=== PATIENT | female | born 1995 | race Caucasian/White ===

== ENCOUNTER 2021-02-08 22:08 | Emergency (ER) | payer MEDICAID ==
[~2021-02-08] VITALS: Ht 157.5 cm; Wt 70.3 kg
--- NOTE | 2021-02-08 22:25 | NUR ---
Patient to ER bed TENT 1 to gown for evaluation. Side rails up.
[2021-02-08 22:26] VITALS: BP_SYST 125
--- NOTE | 2021-02-08 22:30 | NUR ---
Pt brought by self, ambulatory, A&Ox4, pt presents to ER with sore throat, states food got stock on throat and pain started after, pt afebrile, skin pink and warm, cap refill <3.
--- NOTE | 2021-02-08 23:55 | NUR ---
ER Dr. Quick at bedside examining patient.
[2021-02-09] MEDS ORDERED: PROM473S6 PO (00:47)
[2021-02-09] MEDS ORDERED: PRELO PO (00:47)
[2021-02-09] MEDS ORDERED: AMOX250S64 PO (00:47)
[2021-02-09 01:11] VITALS: BP_SYST 122
--- NOTE | 2021-02-09 01:11 | NUR ---
Patient given written and verbal discharge instructions and verbalizes understanding. ER MD discussed with patient the results and treatment provided. Patient in stable condition. ID arm band removed. Rx of PRELONE, AUGMENTIN, TYLENOL WITH CODEINE given. Patient educated on pain management and to follow up with PMD. Pain Scale 0/10 Opportunity for questions provided and answered.
== END 2021-02-09 01:11 | disposition home or self-care (01) ==
LOC: SED 22:08
DX: J02.8 Acute pharyngitis due to other specified organisms (principal); B97.89 Other viral agents as the cause of diseases classified elsewhere; J45.909 Unspecified asthma, uncomplicated; Z20.822 Contact with and (suspected) exposure to COVID-19
CPT/HCPCS: 36415; 70360-TC; 99284

== ENCOUNTER 2021-03-18 12:25 | Emergency (ER) | payer MEDICAID, SELFPAY ==
[~2021-03-18] VITALS: Ht 160 cm; Wt 69.4 kg
[~2021-03-18 12:25] MED LIST: AMOX250S64 PO; PRELO PO; PROM473S6 PO
[2021-03-18 12:30] VITALS: BP_SYST 109
--- NOTE | 2021-03-18 12:30 | NUR ---
TRIAGED IN OUTSIDE TENT AND AWAITING ER BED.
--- NOTE | 2021-03-18 12:47 | NUR ---
PT STATES THAT SHE WENT TO AN OUTSIDE FESTIVAL, NOW WITH COUGH, RIGHT EAR PAIN, AND SORE THROAT. PT STATES SHE IS UNVACCINATED AND DOES NOT WANT ONE.
--- NOTE | 2021-03-18 13:01 | NUR ---
SING OUT TO TENT TO EVALUATE PT.
[2021-03-18] MEDS ORDERED: ALBU8.5H8 INH (13:12)
[2021-03-18] MEDS ORDERED: IBUP-1969 PO (13:12)
[2021-03-18] MEDS ORDERED: BENZ-16 PO (13:12)
--- NOTE | 2021-03-18 13:23 | NUR ---
Patient given written and verbal discharge instructions and verbalizes understanding. ER MD discussed with patient the results and treatment provided. Patient in stable condition. ID arm band removed. Rx of ALBUTEROL, TESSALON, IBUPROFEN given. Patient educated on pain management and to follow up with PMD. Pain Scale 0/10. Opportunity for questions provided and answered. Medication side effect fact sheet provided.
== END 2021-03-18 13:23 | disposition home or self-care (01) ==
LOC: SED 12:25
DX: B34.9 Viral infection, unspecified (principal); J45.909 Unspecified asthma, uncomplicated; Z79.899 Other long term (current) drug therapy; Z20.822 Contact with and (suspected) exposure to COVID-19
CPT/HCPCS: 36415; 99283

== ENCOUNTER 2023-11-20 18:15 | Emergency (ER) | payer MEDICAID ==
[~2023-11-20] VITALS: Ht 160 cm; Wt 72.6 kg
[~2023-11-20 18:15] MED LIST changes: +ALBU8.5H8 INH; +BENZ-16 PO; +IBUP-1969 PO; +PRED15SO73 PO; -PRELO PO; +PROM473S4 PO; -PROM473S6 PO
[2023-11-20 18:24] VITALS: BP_SYST 119; PULSE 62; RESP 16; TEMP 97.3; O2SAT 99
[2023-11-20 19:54] LABS: BASOPHILS # (AUTO) 0.2 K/uL (0.0-0.2); EOSINOPHILS # (AUTO) 0.2 K/uL (0.0-0.4); EOSINOPHILS % (AUTO) 2.7 % (0.0-4.0); HEMATOCRIT 40.7 % (36-48); LYMPHOCYTES # (AUTO) 2.7 K/uL (1.0-5.5); LYMPHOCYTES % (AUTO) 35.5 % (20.5-51.5); MEAN CORPUSCULAR HEMOGLOBIN 31 pg (27-31); MEAN CORPUSCULAR HGB CONC 35 % (32-36); MEAN CORPUSCULAR VOLUME 88 fL (79.0-98.0); MONOCYTES # (AUTO) 0.6 K/uL (0.0-1.0); MONOCYTES % (AUTO) 7.2 % (1.7-9.3); NEUTROPHILS % (AUTO) 51.6 % (40.0-70.0); PLATELET COUNT (AUTO) 274 K/uL (130-430); RED BLOOD CELL COUNT(AUTO) 4.61 MIL/uL (4.2-6.2); RED CELL DISTRIBUTION WIDTH 12.7 % (9.0-15.0); WHITE BLOOD COUNT (AUTO) 7.7 K/uL (4.8-10.8)
[2023-11-20 19:58] LABS: ERYTHROCYTE SEDIMENTATION RATE < 1 MM/HR (0-20)
[2023-11-20 20:13] LABS: HEMOGLOBIN A1C 5.5 % (<5.7)
[2023-11-20 20:15] LABS: SERUM HCG (QUALITATIVE) NEGATIVE (NEGATIVE)
[2023-11-20 20:38] LABS: CALCIUM 8.9 mg/dL (8.4-11.0); CREATININE 0.92 mg/dL (0.55-1.30); POTASSIUM 3.3 mmol/L (3.5-5.1)
[2023-11-20] MEDS ORDERED: IBUP-1969 PO (20:43)
[2023-11-20] MEDS ORDERED: HYDR-3917 PO (20:43)
[2023-11-20] MEDS ORDERED: BUSP5TAB3 PO (21:09)
[2023-11-20 21:29] VITALS: BP_SYST 121; PULSE 61; RESP 17; TEMP 97.3; O2SAT 99
== END 2023-11-20 21:29 | disposition home or self-care (01) ==
LOC: SED 18:15
DX: G62.9 Polyneuropathy, unspecified (principal); R00.1 Bradycardia, unspecified; J45.909 Unspecified asthma, uncomplicated; Z79.899 Other long term (current) drug therapy; Z79.2 Long term (current) use of antibiotics
CPT/HCPCS: 36415; 71045; 80048; 81025; 83037; 83605; 84703; 85025; 85651; 93005; 99285